=== PATIENT | male | born 1985 | race Caucasian/White ===

== ENCOUNTER 2018-11-18 12:56 | Emergency (ER) | payer OTHER ==
[2018-11-18 13:33] VITALS: BP 131/79
--- NOTE | 2018-11-18 14:44 | RADIOLOGY REPORT (SQ) ---
EXAM DESCRIPTION: HAND LEFT 3 VIEWS COMPLETED DATE/TIME: 11/18/2018 2:29 pm REASON FOR STUDY: left hand pain COMPARISON: None. EXAM PARAMETERS: NUMBER OF VIEWS: Three views. TECHNIQUE: AP, lateral and oblique radiographic images acquired of the left hand. LIMITATIONS: None. FINDINGS: MINERALIZATION: Normal. BONES: There appears to be a nondisplaced chip fracture of the base of the 1st distal phalanx. Canno t exclude a nondisplaced chip fracture of the base of the 2nd middle phalanx. JOINTS: No effusions. SOFT TISSUES: No soft tissue swelling. No foreign body. OTHER: No other significant finding. IMPRESSION: Minor fractures as described. TECHNICAL DOCUMENTATION: JOB ID: [id number] [employer]- All Rights Reserved Reading location - IP/workstation name: [email or web address]
--- NOTE | 2018-11-18 15:20 | ER Document Report ---
HPI - HPI Time Seen by Provider: 11/18/18 14:09 Pain Level: 5 Notes: 32-year-old male presents to the ED for evaluation after he was on a chainsaw, kicked back and hit his hand, has a small puncture wound times 3 hours ago. Tetanus is up-to-date. No active bleeding. Has not tried any [id number] medications. Denies any numbness or tingling in arms or legs. Is not taking medications. Denies any other area of injury. Denies fevers, chills, chest pain,palpitations, shortness of breath, dyspnea, nausea, vomiting, diarrhea, abdominal pain, hematuria,blurred vision, double vision, loss of vision, speech changes, LH, dizziness, syncope, headaches, wheezing, ST, URI, neck pain, weakness, bowel or bladder dysfunction, saddle anesthesia, numbness or tingling in bilateral upper or lower extremities equally, muscle paralysis, weakness in bilateral upper or lower extremities equally or rash. Denies IV drug use. Past Medical History - General Information source: Patient - Social History Smoking Status: Unknown if Ever Smoked Family History: Reviewed & Not Pertinent Patient has suicidal ideation: No Patient has homicidal ideation: No Renal/ Medical History: Denies: Hx Peritoneal Dialysis Vertical Provider Document - CONSTITUTIONAL Agree With Documented VS: Yes Notes: PHYSICAL EXAMINATION: GENERAL: Well-appearing, well-nourished and in no acute distress. HEAD: Atraumatic, normocephalic. EYES: Pupils equal round and reactive to light, extraocular movements intact, sclera anicteric, conjunctiva are normal. ENT: Nares patent, oropharynx clear without exudates. Moist mucous membranes. NECK: Normal range of motion, supple without lymphadenopathy LUNGS: Breath sounds clear to auscultation bilaterally and equal. No wheezes rales or rhonchi. HEART: Regular rate and rhythm without murmurs ABDOMEN: Soft, nontender, nondistended abdomen. No guarding, no rebound. No masses appreciated. Musculoskeletal: Normal range of motion, no pitting or edema. No cyanosis. Noted pain with flexion, extension, abduction, adduction of digit #1st and 2nd phalange. Full motor and sensory function in CONSTANTINE. Etl Consultant + 2 BUE equally. negative Snuffbox tenderness noted on left. Ulnar and radial pulses + 2 BUE equally. DTRs +2 in bilateral upper extremities equally. No pain on active pr passive extension or flexion on resistance to left phalanges. no deformity noted of hand or wrist bilaterally. Normal flexion, extension, ulnar/radial deviation. Negative kanavels sign. No open wounds or drainage from wrist. No vascular compromise. full motor and sensory function with medial, radial and ulnar nerves bilaterally and equally. NEUROLOGICAL: Cranial nerves grossly intact. Normal speech, normal gait. Normal sensory, motor exams PSYCH: Normal mood, normal affect. SKIN: Warm, Dry, normal turgor, no rashes or lesions noted. Noted puncture wounds to left distal aspect of first and second phalanges, no active bleeding, - INFECTION CONTROL TRAVEL OUTSIDE OF THE [place] IN LAST 30 DAYS: No Course - Re-evaluation Re-evalutation: 11/18/18 15:31 Afebrile vitals stable no distress. Tetanus is up-to-date. Noted puncture wounds to second and third phalanges, x-ray does show nondisplaced chip fracture to the base of the first distal phalanx and I could not exclude a chip fracture to the second middle phalanx. Patient given a gram Rocephin IM for what is considered an open fracture, will start on oral Keflex. Patient placed in a cruz mb splint. Consent by patient given to place short vsplint,. cms intact, sensory motor function intact in bilateral upper extremities prior to splint application fiberglass splint placed without incident. cms intact 20 minutes after splint application. Splint is in good alignment. Bilateral upper extremities with motor and sensory function intact 20 minutes after application. Pt stated that splint felt comfortable. Advised to take antibiotics with food. Do not drive, drink or operate machinery while taking [place] some cause sedation or impairment in cognitive function. Follow-up with human factors specialist for thumb fracture and possible second finger fracture. After performing a Medical Screening Examination, I estimate there is LOW risk for OPEN FRACTURE, COMPARTMENT SYNDROME, DEEP VENOUS THROMBOSIS, ACUTE TENDON RUPTURE, or NEUROVASCULAR INJURY thus I consider the discharge disposition reasonable. I have reevaluated this patient multiple times and no significant life threatening changes are noted. The patient and I have discussed the diagnosis and risks, and we agree with discharging home to closely follow-up with their primary doctor or the referral orthopedist with the understanding that symptoms and presentations can change. We also discussed returning to the Emergency Department immediately if new or worsening symptoms occur. We have discussed the symptoms which are most concerning (e.g., changing or worsening pain, numbness, weakness) that necessitate immediate return 11/18/18 15:43 - Vital Signs Vital signs: Temp Pulse Resp BP Pulse Ox 98.6 F 78 16 131/79 H 96 11/18/18 13:32 11/18/18 13:32 11/18/18 13:32 11/18/18 13:32 11/18/18 13:32 Discharge - Discharge Clinical Impression: Finger fracture, left, Open fracture Condition: Stable Disposition: HOME, SELF-CARE Instructions: Compartment Syndrome Cautions ([facility]), Open Finger Tuft Fracture ([facility]), Splint Precautions ([facility]), Temporary Splint ([facility]) Additional Instructions: Fractured Finger There is a fracture in your finger. The bone is straight and in good position to heal. The doctor has assessed the seriousness of the fracture and has explained your treatment plan. Usually the finger will be splinted until fracture healing is complete. This is usually about three or four weeks. At that time, the injured finger may be taped to the next finger to provide a moving splint for longer protection. The first few days after the injury, the finger should be kept elevated and cold (with ice packs). This decreases the swelling and pain. You should contact the doctor or return at once if pain or swelling become severe, or if the finger becomes numb. Some degree of bruising is normal with a finger fracture. A vertebra within your spine has been crushed. This is called a "compression fracture." Typically, this type of injury is caused by a sudden bending or compressing force such as an auto accident or a fall. Although painful, the fracture is not serious. You can expect to recover fully within a few weeks. The treatment of this fracture is essentially the same as for a severe back strain. Muscle relaxers or antiinflammatory medication may be prescribed. You should rest in bed for a few days until the pain eases, then begin light activity. A re-check will determine when you are ready to resume work or sports. Ice pack the painful area at first. After you are active again, you may want to apply gentle heat intermittently to relax sore muscles. You can continue with ice packs if you find them helpful in reducing muscle pain. Call the doctor or return at once if you develop radiating pains, muscle weakness, problems with the bladder or bowels, or numbness. Not drive, drink or operate machinery while taking medication cause sedation and cognitive impairment Return immediately for any new or worsening symptoms. Follow up with primary care provider, call tomorrow to make followup appointment. Prescriptions: Cephalexin Monohydrate [Keflex 500 mg Capsule] 500 mg PO BID #10 capsule Forms: Return to Work Referrals: WING MAYA MD [ACTIVE STAFF] - Follow up in 3-5 days TORY ROSA MD [Primary Care Provider] - Follow up in 3-5 days
[2018-11-18] MEDS ORDERED: HYDROCODONE/ACETAMINOPHEN 5-325 MG (6 TAB/ER DISP) PO PRN (15:30)
[2018-11-18] MEDS ORDERED: LIDOCAINE 1% INJ-PF (10 MG/ML) 30 ML SDV INJ ONE (15:30)
[2018-11-18] MEDS ORDERED: CEFTRIAXONE INJ 1000 MG VIAL IM ONE (15:30)
== END 2018-11-18 16:19 | disposition home or self-care (01) ==
LOC: ER 12:56
PROC: 2W3KX1Z Immobilization of Left Finger using Splint (ICD-10-PCS; principal; 2018-11-18)
DX: S62.661B Nondisplaced fracture of distal phalanx of left index finger, initial encounter for open fracture (principal); W29.3XXA Contact with powered garden and outdoor hand tools and machinery, initial encounter
CPT/HCPCS: 99283; 73130; 29130; J3490; J0696